=== PATIENT | female | born 1990 | race Caucasian/White ===

== ENCOUNTER 2020-05-29 20:45 | Emergency (ER) | payer BC ==
[~2020-05-29] VITALS: Ht 162.6 cm; Wt 64.0 kg
[2020-05-29] MEDS ORDERED: MULTIVIT INFUSN,ADULT 4,VIT K 10 ML, THIAMINE INJ 100 MG, FOLIC ACID INJ 1 MG in IV NOR... IV ONE (21:15)
[2020-05-29] MEDS ORDERED: ONDANSETRON PF 4 MG/2 ML VIAL. IV ONE (21:15)
[2020-05-29 21:21] LABS: BASO % 0 % (0-3); EOS % 0 % (0-3); HEMATOCRIT 41.9 % (36.0-47.0); HEMOGLOBIN 14.7 g/dL (12.0-15.5); LYMPH # 4.2 x10^3/uL (1.0-4.8); LYMPH % 58 % (24-48); MEAN CORPUSCULAR HEMOGLOBIN 32 pg (25-35); MEAN CORPUSCULAR HGB CONC 35 g/dL (31-37); MEAN CORPUSCULAR VOLUME 91 fL (79-100); MONO # 0.5 x10^3/uL (0.0-1.1); MONO % 7 % (0-9); NEUT # 2.6 x10^3/uL (1.8-7.7); NEUT % 36 % (31-73); PLATELET COUNT 331 x10^3/uL (140-400); RED BLOOD COUNT 4.59 x10^6/uL (3.50-5.40); RED CELL DISTRIBUTION WIDTH 15.1 % (11.5-14.5); WHITE BLOOD COUNT 7.3 x10^3/uL (4.0-11.0)
[2020-05-29 21:32] LABS: CALCIUM 8.1 mg/dL (8.5-10.1); GFR 64.7; POTASSIUM 3.5 mmol/L (3.5-5.1)
[2020-05-29 21:37] LABS: ALBUMIN 3.9 g/dL (3.4-5.0); ALBUMIN/GLOBULIN RATIO 0.8 (1.0-1.7); TOTAL BILIRUBIN 0.5 mg/dL (0.2-1.0); TOTAL PROTEIN 8.5 g/dL (6.4-8.2)
[2020-05-29 21:39] LABS: ACETAMIN < 2 mcg/ml (10-30); SALIC < 2.8 mg/dL (2.8-20.0)
[2020-05-29 21:42] LABS: ETHANOL 410 mg/dL (0-10)
[2020-05-29 21:45] LABS: BILIRUBIN,URINE NEGATIVE (NEG); CLARITY,URINE CLEAR; COLOR,URINE YELLOW; NITRITE,URINE NEGATIVE (NEG); PROTEIN,URINE >=300 mg/dL (NEG-TRACE)
[2020-05-29 21:47] LABS: % BANDS 1 % (0-9); % EOS 1 % (0-5); % LYMPHS 57 % (24-48); % MONOS 5 % (0-10); % SEGS 36 % (35-66); PLT ESTIMATE ADEQUATE (ADEQUATE)
[2020-05-29 21:49] LABS: SQUAMOUS EPITHELIAL CELL,UR FEW /LPF
[2020-05-29 21:50] LABS: AMORPHOUS SEDIMENT,UR PRESENT /HPF; BACTERIA,URINE 0 /HPF (0-FEW); HYALINE CASTS, URINE OCCASIONAL /HPF; WBC,URINE 0 /HPF (0-4)
[2020-05-29 21:51] LABS: BARBITURATES NEG (NEG); BENZODIAZEPINES NEG (NEG); CANNABINOIDS NEG (NEG); COCAINE NEG (NEG); METHADONE NEG (NEG); OPIATES NEG (NEG); PHENCYCLIDINE NEG (NEG)
[2020-05-29 21:53] LABS: AMPHETAMINE/METHAMPHETAMINE NEG (NEG)
[2020-05-29] MEDS ORDERED: IV NORMAL SALINE 1000ML BAG 1,000 ML IV ONE (22:15)
--- NOTE | 2020-05-30 00:06 | PHYS DOC ---
General Adult EDM: Chief Complaint: ALCOHOL INTOXICATION HPI: HPI: Patient is a 29 year old female, brought to emergency department by EMS today with complaints of alcohol intoxication. EMS reports that there were 7 empty bottles of alcohol found around the patient, patient's mother had called EMS because the patient had not responded to phone calls for several days. Patient states she has a history of heavy alcohol use. She denies any suicidal or homicidal ideations. Patient is tearful on arrival, she is following commands. HPI is limited due to patient's intoxicated status. (MIRTA PELAEZ APRN) Review of Systems: Review of Systems: Constitutional: Denies fever or chills. [] HENT: Denies headache, reports dry mouth Respiratory: Denies cough or shortness of breath. [] Cardiovascular: Denies chest pain GI: Denies abdominal pain; EMS reports patient was found lying in vomit Musculoskeletal: Denies back pain or joint pain. [] Integument: Denies rash. [] Neurologic: Denies headache Psychiatric: Denies suicidal or homicidal ideations, reports marital problems and recent divorce, reports daily alcohol use (MIRTA PELAEZ GROUND OPERATIONS SUPERVISOR) Heart Score: Risk Factors: Risk Factors: DM, Current or recent (<one month) smoker, HTN, HLP, family history of CAD, obesity. Risk Scores: Score 0 - 3: 2.5% MACE over next 6 weeks - Discharge Home Score 4 - 6: 20.3% MACE over next 6 weeks - Admit for Clinical Observation Score 7 - 10: 72.7% MACE over next 6 weeks - Early Invasive Strategies (MIRTA PELAEZ GROUND OPERATIONS SUPERVISOR) Current Medications: Current Medications Medications (Trade) Dose Ordered Sig/Salvatore Start Time Stop Time Status Last Admin Dose Admin Lorazepam (Ativan Inj) 2 mg PRN Q1HR PRN 05/29/20 21:00 05/29/20 23:34 2 MG Multivitamins 10 ml/Thiamine HCl 100 mg/Folic Acid 1 mg/Sodium Chloride 1,011.2 ml @ 1,000.088 mls/hr 1X ONCE 05/29/20 21:15 05/29/20 22:15 DC 05/29/20 21:26 1,000.088 MLS/HR Ondansetron HCl (Zofran) 4 mg 1X ONCE 05/29/20 21:15 05/29/20 21:16 DC 05/29/20 21:27 4 MG Sodium Chloride 1,000 ml @ 1,000 mls/hr 1X ONCE 05/29/20 22:15 05/29/20 23:14 DC 05/29/20 22:36 1,000 MLS/HR (MIRTA PELAEZ APRN) Allergies: Allergies: Allergies Coded Allergies Type Severity Reaction Last Updated Verified No Known Drug Allergies 05/29/20 No (MIRTA PELAEZ APRN) Physical Exam: PE: Constitutional: Well developed, well nourished, disheveled, intoxicated, heavy odor of alcohol HENT: Normocephalic, atraumatic, bilateral external ears normal, dry mucous membranes, dry lips nose normal. [] Eyes: PERRLA, conjunctiva injected bilaterally, no discharge. [] Neck: Normal range of motion, no stridor. [] Cardiovascular:Heart rate tachycardic rhythm, no murmur [] Lungs & Thorax: Respirations even and unlabored, no retractions, no respiratory distress Abdomen: soft, no tenderness Skin: Warm, dry Extremities: No cyanosis, ROM intact, no edema. [] Neurologic: Alert and oriented X 3, slurred speech, Psychologic: Affect intoxicated, judgement impaired, mood depressed (MIRTA PELAEZ APRN) PE: Constitutional: Well developed, well nourished, no acute distress, non-toxic appearance HENT: Normocephalic, atraumatic Eyes: Conjunctiva normal, no discharge Neck: Normal range of motion, no tenderness, supple Lungs & Thorax: No respiratory distress, equal chest rise and fall Abdomen: Soft, no tenderness Skin: Warm, dry, no erythema, no rash Back: No tenderness, no CVA tenderness Extremities: No tenderness, ROM intact, no edema Neurologic: Alert and oriented X 3, no focal deficits noted Psychologic: Affect normal, judgment normal (NOMI QUICK DO) Current Patient Data: Labs: Laboratory Tests Test 05/29/20 21:06 05/29/20 21:34 05/29/20 21:40 White Blood Count 7.3 x10^3/uL (4.0-11.0) Red Blood Count 4.59 x10^6/uL (3.50-5.40) Hemoglobin 14.7 g/dL (12.0-15.5) Hematocrit 41.9 % (36.0-47.0) Mean Corpuscular Volume 91 fL (79-100) Mean Corpuscular Hemoglobin 32 pg (25-35) Mean Corpuscular Hemoglobin Concent 35 g/dL (31-37) Red Cell Distribution Width 15.1 % (11.5-14.5) H Platelet Count 331 x10^3/uL (140-400) Neutrophils (%) (Auto) 36 % (31-73) Lymphocytes (%) (Auto) 58 % (24-48) H Monocytes (%) (Auto) 7 % (0-9) Eosinophils (%) (Auto) 0 % (0-3) Basophils (%) (Auto) 0 % (0-3) Neutrophils # (Auto) 2.6 x10^3/uL (1.8-7.7) Lymphocytes # (Auto) 4.2 x10^3/uL (1.0-4.8) Monocytes # (Auto) 0.5 x10^3/uL (0.0-1.1) Eosinophils # (Auto) 0.0 x10^3/uL (0.0-0.7) Basophils # (Auto) 0.0 x10^3/uL (0.0-0.2) Segmented Neutrophils % 36 % (35-66) Band Neutrophils % 1 % (0-9) Lymphocytes % 57 % (24-48) H Monocytes % 5 % (0-10) Eosinophils % 1 % (0-5) Platelet Estimate Adequate (ADEQUATE) Sodium Level 141 mmol/L (136-145) Potassium Level 3.5 mmol/L (3.5-5.1) Chloride Level 99 mmol/L (98-107) Carbon Dioxide Level 24 mmol/L (21-32) Anion Gap 18 (6-14) H Blood Urea Nitrogen 6 mg/dL (7-20) L Creatinine 1.0 mg/dL (0.6-1.0) Estimated GFR (Cockcroft-Gault) 64.7 BUN/Creatinine Ratio 6 (6-20) Glucose Level 118 mg/dL (70-99) H Calcium Level 8.1 mg/dL (8.5-10.1) L Total Bilirubin 0.5 mg/dL (0.2-1.0) Aspartate Amino Transferase (AST) 96 U/L (15-37) H Alanine Aminotransferase (ALT) 58 U/L (14-59) Alkaline Phosphatase 97 U/L (46-116) Total Protein 8.5 g/dL (6.4-8.2) H Albumin 3.9 g/dL (3.4-5.0) Albumin/Globulin Ratio 0.8 (1.0-1.7) L Salicylates Level < 2.8 mg/dL (2.8-20.0) L Salicylate Last Dose Date Unknown Salicylate Last Dose Time Unknown Acetaminophen Level < 2 mcg/ml (10-30) L Acetaminophen Last Dose Date Unknown Acetaminophen Last Dose Time Unknown Ethyl Alcohol Level 410 mg/dL (0-10) *H Urine Collection Type U cath Urine Color Yellow Urine Clarity Clear Urine pH 6.0 (<5.0-8.0) Urine Specific [place] 1.015 (1.000-1.030) Urine Protein >=300 mg/dL (NEG-TRACE) Urine Glucose (UA) Negative mg/dL (NEG) Urine Ketones (Stick) 40 mg/dL (NEG) Urine Blood Moderate (NEG) Urine Nitrite Negative (NEG) Urine Bilirubin Negative (NEG) Urine Urobilinogen Dipstick 1.0 mg/dL (0.2 mg/dL) Urine Leukocyte Esterase Negative (NEG) Urine RBC 1-2 /HPF (0-2) Urine WBC 0 /HPF (0-4) Urine Squamous Epithelial Cells Few /LPF Urine Amorphous Sediment Present /HPF Urine Bacteria 0 /HPF (0-FEW) Urine Hyaline Casts Occasional /HPF Urine Mucus Slight /LPF Urine Opiates Screen Neg (NEG) Urine Methadone Screen Neg (NEG) Urine Barbiturates Neg (NEG) Urine Phencyclidine Screen Neg (NEG) Urine Amphetamine/Methamphetamine Neg (NEG) Urine Benzodiazepines Screen Neg (NEG) Urine Cocaine Screen Neg (NEG) Urine Cannabinoids Screen Neg (NEG) Urine Ethyl Alcohol Pos (NEG) POC Urine HCG, Qualitative Hcg negative (Negative) Laboratory Tests 05/29/20 21:06 Laboratory Tests 05/29/20 21:06 (MIRTA PELAEZ APRN) EKG: EK-sinus tachycardia, rate 121, no STEMI, read by Dr. Chavez[] (MIRTA PELAEZ APRN) Radiology/Procedures: Radiology/Procedures: [] (MIRTA PELAEZ APRN) Course & Med Decision Making: Course & Med Decision Making Pertinent Labs and Imaging studies reviewed. (See chart for details) 29-year-old female brought to the emergency department by EMS for acute alcohol intoxication. HPI is limited due to the patient's alcohol intoxication level. She denies SI or HI. Alcohol detoxification orders were initiated. CBC was unremarkable; CMP revealed a glucose of 118, anion gap of 18, calcium of 8.1, AST of 96, otherwise unremarkable; urinalysis revealed a negative hCG, ketones of 40; urine drug screen was positive for alcohol, her initial blood blood alcohol level was 410 Patient was given a banana bag, 4 mg of Zofran, and 2 mg of Ativan on arrival. After reviewing labs another liter of normal saline was ordered. Plan is to let patient sober up overnight and then have a member of the PAT assessment team come evaluate the patient and offer treatment options. Report was given to Dr. Chavez at 0000. He will reassess the patient and arrange for the PAT assessment. [] (MIRTA PELAEZ APRN) Course & Med Decision Making I have reviewed the non-physician practitioner's documentation, personally taken the patient's history, performed an exam and agree with the physical findings, clinical impression, and management plan. In brief patient is a 29-year-old female who presents with chief complaint of alcohol intoxication. EMS were called to the patient's home because mother cannot get a hold of the patient. Upon arrival EMS noted several empty bottles of alcohol surrounding the patient. Patient is additional level 410. Psychiatric assessment team was consulted to evaluate the patient given her tearful affect and mom's concern for unstable environment at home with depressive features. She denies any suicidal homicidal ideation on arrival. U nfortunately patient's mental status secondary to alcohol intoxication precludes her ability to participate in meaningful pain or health examination. She will be monitored in the emergency department until clinically sober and able to participate in remainder of examination. She was monitored overnight and showed no signs of clinical or respiratory deterioration. Upon reassessment at approximately 0545 patient remains clinically intoxicated. Repeat alcohol level pending to facilitate PAT assessment. I have signed out the patient's emergency department care to Dr. Quick. We discussed the history, physical exam findings, completed and pending laboratory results and imaging studies. We have also discussed the current treatment plan and expected clinical course. Please refer to chart for the patient's remaining emergency department course, final disposition, and clinical impression(s). (ANA LUISA CHAVEZ DO) Course & Med Decision Making 0600- Sign out received from Dr. Chavez for patient with history of ETOH abuse who was acutely intoxicated and monitored overnight. Plan for PAT evaluation and recommendation. 0750- PAT evaluation performed. Nevaeh (PAT) recommends transfer to detox facility. Awaiting acceptance to [facility] for ETOH detox. Patient seen and evaluated by myself. Labs reviewed. 1352- [facility] accepting of transfer for ETOH detox. Patient stable for transfer for inpatient psychiatric admission for ETOH detox. Dr. Lundberg (psych) accepting. Discussed findings and plan with patient, who acknowledges understanding and agreement. (NOMI QUICK DO) Dragon Disclaimer: Dragevangelista Disclaimer: This electronic medical record was generated, in whole or in part, using a voice recognition dictation system. (MIRTA PELAEZ APRN) Departure Departure Impression: Primary Impression: Chronic alcohol abuse Additional Impression: Dehydration Disposition: 65 XFER TO PSYCH HOSP/UNIT ([facility]- Dr. Lundberg accepting) Condition: GUARDED Referrals: UNKNOWN PCP NAME (PCP) Justicifation of Admission Dx: Justifications for Admission: Justification of Admission Dx: N/A (MIRTA PELAEZ APRN) Justification of Admission Dx: N/A (NOMI QUICK DO) MIRTA PELAEZ APRN May 30, 2020 00:06 ANA LUISA CHAVEZ DO May 30, 2020 06:15 NOMI QUICK DO May 30, 2020 06:59
[2020-05-30] MEDS ORDERED: IV NORMAL SALINE 1000ML BAG 1,000 ML IV ONE (02:30)
--- NOTE | 2020-05-30 03:03 | EKG ---
[facility] [address] [place] [address] Test Date: 2020-05-29 Test Time: 21:18:01 Pat Name: LEESA COLLINS Department: Room: Gender: F Raise Driller: : 1990 Requested By: MIRTA PELAEZ Order Number: [id number] Reading MD: Measurements Intervals [place] Rate: 121 P: 214 MI: 94 QRS: 39 QRSD: 76 T: 26 QT: 348 QTc: 497 Interpretive Statements SINUS TACHYCARDIA OTHERWISE NORMAL ECG RI6.02 No previous ECG available for comparison
[2020-05-30] MEDS ORDERED: IV RINGERS,LACTATED 1000ML 1,000 ML IV ONE (05:45)
[2020-05-30] MEDS ORDERED: ONDANSETRON PF 4 MG/2 ML VIAL. IVP ONE (08:45)
[2020-05-30 17:25] VITALS: BP 115/64
== END 2020-05-30 17:25 ==
LOC: ER 20:45
DX: F10.229 Alcohol dependence with intoxication, unspecified (principal); Y90.8 Blood alcohol level of 240 mg/100 ml or more; E86.0 Dehydration
CPT/HCPCS: 36415; 80053; 80307; 80329; 81001; 81025; 85007; 85025; 93005; 96361; 96365; 96375; 96376; 99285; G0480; J2060; J2405; J3411; J3490; J7030; J7120

== ENCOUNTER 2020-07-16 17:45 | Emergency (ER) | payer SELFPAY ==
[~2020-07-16] VITALS: Ht 162.6 cm; Wt 59.2 kg
[2020-07-16 18:19] VITALS: BP 133/82
--- NOTE | 2020-07-16 18:47 | PHYS DOC ---
Past Medical History Past Medical History: Other Additional Past Medical Histor: etoh Past Surgical History: No Surgical History Smoking Status: Current Every Day Smoker Additional Information: VAPS Alcohol Use: Heavy Additional Information: PT REPORTS THAT SHE DRINKS 1 LITER OF VODKA DAILY,STOPPED DRINKING X4 HOURS AGO General Adult EDM: Chief Complaint: SUBSTANCE ABUSE HPI: HPI: Patient is a 29 year old female who presented to ER for evaluation of alcohol abuse. Patient says she has been binge drinking for the last 5 days. Patient would like to detox. Patient denies suicidal ideation, denies nausea vomiting, no abdominal pain, no headache, no chest pain, no cough, no fever. Review of Systems: Review of Systems: Constitutional: Denies fever or chills. [] Eyes: Denies change in visual acuity. [] HENT: Denies nasal congestion or sore throat. [] Respiratory: Denies cough or shortness of breath. [] Cardiovascular: Denies chest pain or edema. [] GI: Denies abdominal pain, nausea, vomiting, bloody stools or diarrhea. [] : Denies dysuria. [] Musculoskeletal: Denies back pain or joint pain. [] Integument: Denies rash. [] Neurologic: Denies headache, focal weakness or sensory changes. [] Endocrine: Denies polyuria or polydipsia. [] Lymphatic: Denies swollen glands. [] Psychiatric: Denies depression or anxiety. [] Heart Score: Risk Factors: Risk Factors: DM, Current or recent (<one month) smoker, HTN, HLP, family h istory of CAD, obesity. Risk Scores: Score 0 - 3: 2.5% MACE over next 6 weeks - Discharge Home Score 4 - 6: 20.3% MACE over next 6 weeks - Admit for Clinical Observation Score 7 - 10: 72.7% MACE over next 6 weeks - Early Invasive Strategies Current Medications: Current Medications Medications (Trade) Dose Ordered Sig/Salvatore Start Time Stop Time Status Last Admin Dose Admin Multivitamins 10 ml/Thiamine HCl 100 mg/Folic Acid 1 mg/Sodium Chloride 1,011.2 ml @ 1,000 mls/ hr 1X ONCE 07/16/20 19:00 07/16/20 20:00 Allergies: Allergies: Allergies Coded Allergies Type Severity Reaction Last Updated Verified No Known Drug Allergies 05/29/20 No Physical Exam: PE: Constitutional: Well developed, well nourished, no acute distress, non-toxic appearance. [] HENT: Normocephalic, atraumatic, bilateral external ears normal, oropharynx moist, no oral exudates, nose normal. [] Eyes: PERRLA, EOMI, conjunctiva normal, no discharge. [] Neck: Normal range of motion, no tenderness, supple, no stridor. [] Cardiovascular:Heart rate regular rhythm, no murmur [] Lungs & Thorax: Bilateral breath sounds clear to auscultation [] Abdomen: Bowel sounds normal, soft, no tenderness, no masses, no pulsatile masses. [] Skin: Warm, dry, no erythema, no rash. [] Back: No tenderness, no CVA tenderness. [] Extremities: No tenderness, no cyanosis, no clubbing, ROM intact, no edema. [] Neurologic: Alert and oriented X 3, normal motor function, normal sensory function, no focal deficits noted. [] Psychologic: Affect normal, judgement normal, mood normal. [] Current Patient Data: Labs: Current Medications Medications (Trade) Dose Ordered Sig/Salvatore Route PRN Reason Start Time Stop Time Status Last Admin Dose Admin Multivitamins 10 ml/Thiamine HCl 100 mg/Folic Acid 1 mg/Sodium Chloride 1,011.2 ml @ 1,000 mls/ hr 1X ONCE IV 07/16/20 19:00 07/16/20 20:00 07/16/20 18:50 Vital Signs: Vital Signs Date Time Temp Pulse Resp B/P (MAP) Pulse Ox O2 Delivery O2 Flow Rate FiO2 07/16/20 18:19 97.9 102 16 133/82 (99) 97 Room Air 97.9 EKG: EKG: [] Radiology/Procedures: Radiology/Procedures: [] Course & Med Decision Making: Course & Med Decision Making Pertinent Labs and Imaging studies reviewed. (See chart for details) Patient is a 29-year-old female who was intoxicated, presented to ER wanting to be detoxed.. Patient refused to go to [facility] center, wanted to take medication at home. Denies suicidal ideation, will discharge home with Librrayshawn. [place] Disclaimer: [place] Disclaimer: This electronic medical record was generated, in whole or in part, using a voice recognition dictation system. Departure Departure Impression: Primary Impression: Alcohol intoxication Disposition: 01 DC HOME SELF CARE/HOMELESS Condition: IMPROVED Referrals: UNKNOWN PCP NAME (PCP) Patient Instructions: Alcohol Intoxication Additional Instructions: [facility] [address] [place] [address] [facility] [address] [place] [address] [facility] [address] [facility] [place] [address] [facility] [address] [place] [address] [facility] [address] [place] [address] [address] [address] [place] [address] [address] [place] [address] [facility] [address] [place] [address] [facility] [address] [place] [address] [facility] [address] [place] [address] Scripts Chlordiazepoxide Hcl (CHLORDIAZEPOXIDE HCL) 25 Mg Capsule 25 MG PO TID PRN for ANXIETY / AGITATION, #20 CAP Prov: SUDHA GARDUNO DO 07/16/20 SUDHA GARDUNO DO Jul 16, 2020 18:47
[2020-07-16] MEDS ORDERED: MULTIVIT INFUSN,ADULT 4,VIT K 10 ML, THIAMINE INJ 100 MG, FOLIC ACID INJ 1 MG in IV NOR... IV ONE (19:00)
[2020-07-16 19:01] LABS: BASO # 0.1 x10^3/uL (0.0-0.2); BASO % 2 % (0-3); EOS % 1 % (0-3); HEMATOCRIT 41.5 % (36.0-47.0); HEMOGLOBIN 14.3 g/dL (12.0-15.5); LYMPH # 2.6 x10^3/uL (1.0-4.8); LYMPH % 38 % (24-48); MEAN CORPUSCULAR HEMOGLOBIN 31 pg (25-35); MEAN CORPUSCULAR HGB CONC 35 g/dL (31-37); MEAN CORPUSCULAR VOLUME 91 fL (79-100); MONO # 0.4 x10^3/uL (0.0-1.1); MONO % 6 % (0-9); NEUT # 3.7 x10^3/uL (1.8-7.7); NEUT % 54 % (31-73); PLATELET COUNT 280 x10^3/uL (140-400); RED BLOOD COUNT 4.56 x10^6/uL (3.50-5.40); RED CELL DISTRIBUTION WIDTH 13.9 % (11.5-14.5); WHITE BLOOD COUNT 6.8 x10^3/uL (4.0-11.0)
[2020-07-16 19:06] LABS: CALCIUM 8.3 mg/dL (8.5-10.1); CREATININE 0.7 mg/dL (0.6-1.0); GFR 97.6; POTASSIUM 3.9 mmol/L (3.5-5.1)
[2020-07-16 19:13] LABS: ALBUMIN 4.1 g/dL (3.4-5.0); DIRECT BILIRUBIN 0.1 mg/dL (0.0-0.2); MAGNESIUM 2.2 mg/dL (1.8-2.4); TOTAL BILIRUBIN 0.4 mg/dL (0.2-1.0); TOTAL PROTEIN 7.7 g/dL (6.4-8.2)
[2020-07-16 19:15] LABS: PROTHROMBIN TIME PATIENT 14.4 SEC (11.7-14.0)
[2020-07-16 19:18] LABS: ACETAMIN < 2 mcg/ml (10-30); ETHANOL 359 mg/dL (0-10); SALIC < 2.8 mg/dL (2.8-20.0)
[2020-07-16] MEDS ORDERED: CHLO25CA9 PO (20:13)
[2020-07-16] MEDS ORDERED: NICOTINE 14MG PATCH. TD SCH (20:30)
== END 2020-07-16 20:36 | disposition home or self-care (01) ==
LOC: ER 17:45
DX: F10.229 Alcohol dependence with intoxication, unspecified (principal); Y90.8 Blood alcohol level of 240 mg/100 ml or more; F17.200 Nicotine dependence, unspecified, uncomplicated
CPT/HCPCS: 36415; 80048; 80076; 80329; 83735; 85025; 85610; 85730; 96365; 99284; G0480; J3411; J3490; J7030